=== PATIENT | male | born 1955 | race Caucasian/White ===

== ENCOUNTER 2022-12-01 07:27 | Emergency (ER) | payer MEDICARE, BC ==
[2022-12-01] MEDS ORDERED: Lidocaine/Epineph/Tetracaine 3 ML Syringe TOP ONE (08:00)
[2022-12-01] MEDS ORDERED: Ibuprofen 400 MG Tab PO ONE (08:00)
[2022-12-01] MEDS ORDERED: Acetaminophen 325 MG Tab PO ONE (08:00)
[2022-12-01] MEDS ORDERED: Diphtheria,Pertussis(Acell),Tetanus Vaccine 0.5 ML Syringe IM ONE (08:00)
[2022-12-01 08:42] LABS: BLOOD UREA NITROGEN,BUN 14 mg/dL (7.0-18.0); CARBON DIOXIDE,CO2 30.5 mmol/L (21.0-32.0); CHLORIDE,CL 99 mmol/L (98-107); GLUCOSE RANDOM 107 mg/dL (74-106); POTASSIUM,K 4.9 mmol/L (3.5-5.1); SODIUM,NA 135 mmol/L (136-148)
[2022-12-01 08:50] LABS: ESTIMATED GFR 100 mL/min (>60)
[2022-12-01] MEDS ORDERED: Bacitracin Oint 1 GM U/D Packet TOP ONE (09:59)
== END 2022-12-01 11:52 | disposition home or self-care (01) ==
LOC: MW.ED 07:27
DX: R55 Syncope and collapse (principal); S01.81XA Laceration without foreign body of other part of head, initial encounter; W26.8XXA Contact with other sharp object(s), not elsewhere classified, initial encounter; Y93.01 Activity, walking, marching and hiking
CPT/HCPCS: 12014; 36415; 80053; 83735; 84484; 85025; 90471; 90715; 93005; 99284; A9270; 93010; 99283

== ENCOUNTER 2022-12-06 07:23 | Emergency (ER) | payer BC, MEDICARE | END 2022-12-06 07:36 | disposition left against medical advice (07) | LOC: MW.ED 07:23 | DX: Z53.21 Procedure and treatment not carried out due to patient leaving prior to being seen by health care provider (principal) ==

== ENCOUNTER 2025-09-08 05:49 | Emergency (ER) | payer MEDICARE ==
[2025-09-08] MEDS: Diphtheria,Pertussis(Acell),Tetanus Vaccine 0.5 ML Syringe IM ONE (06:15)
[2025-09-08] MEDS: Lidocaine/Epineph/Tetracaine 3 ML Syringe TOP ONE (06:16)
[2025-09-08] MEDS: Lidocaine 1% with EPINEPHrine 1:100,000 10 ML MDV INJECT ONE (06:17)
== END 2025-09-08 07:01 | disposition home or self-care (01) ==
LOC: MW.ED 05:49
DX: S01.112A Laceration without foreign body of left eyelid and periocular area, initial encounter (principal); Z90.49 Acquired absence of other specified parts of digestive tract; Z79.899 Other long term (current) drug therapy; W45.8XXA Other foreign body or object entering through skin, initial encounter; Z23 Encounter for immunization
CPT/HCPCS: 12011; 90471; 90715; 99282; A9270; J2004; 99284

== ENCOUNTER 2025-09-13 06:38 | Emergency (ER) | payer MEDICARE | END 2025-09-13 08:28 | disposition left against medical advice (07) | LOC: MW.ED 06:38 | DX: S01.112D Laceration without foreign body of left eyelid and periocular area, subsequent encounter (principal); X58.XXXD Exposure to other specified factors, subsequent encounter | CPT/HCPCS: 99281 ==